=== PATIENT | male | born 1980 | race Caucasian/White ===

== ENCOUNTER → 2017-07-17 | Day surgery (SDC) | payer BC ==
[2017-06-27 15:01] VITALS: BMI 35.0
[~2017-07-17] VITALS: Ht 188 cm; Wt 125.0 kg
[~2017-07-17] MED LIST: ATROPINE SULFATE 0.1 MG/ML 5ML SYR IV PRN; BUPIVACAINE/EPINEPHRINE 0.5% MPF 1:200,000 30 ML VIAL ONE; CEFAZOLIN 3000MG IV PUSH 15 ML IV SCH; DEXAMETHASONE SOD INJ 4 MG/ML VIAL ONE; EpHEDrine SULFATE INJ 50 MG/ML AMP IV PRN; FENTANYL CITRATE INJ 50 MCG/1 ML 2 ML VIAL ONE; GLYCOPYRROLATE INJ 0.2 MG/ML VIAL ONE; HYDR-5688 PO; HYDROCODONE/ACETAMOPHEN 5/325MG TAB PO PRN; HYDROmorphone INJ 2 MG/ML SYR/VIAL IV PRN; LACTATED RINGER'S 1000ML 1,000 ML IV SCH; LIDOCAINE HCL 2% 2 ML VIAL (20MG/ML) ONE; MIDAZOLAM HCL 1 MG/ML 2ML VIAL ONE; NEOSTIGMINE METHYLSULFATE 5 MG/5 ML SYR ONE; ONDANSETRON INJ 2 MG/ML 2 ML VIAL IV PRN; ONDANSETRON INJ 2 MG/ML 2 ML VIAL ONE; PHENYLEPHRINE 100MCG/ML 5ML SYR IV PRN; PROPOFOL IV EMULSION 10 MG/ML 20 ML VIAL IV ONE; ROCURONIUM BROMIDE 10 MG/ML 5 ML VIAL IV ONE; SODIUM CHLORIDE 0.9% 1000ML 1,000 ML IV SCH
[2017-07-17 07:21] VITALS: BP 165/97; PULSE 89; TEMP 36.8; O2SAT 97; Ht 188 cm; Wt 125.0 kg
--- NOTE | 2017-07-17 08:26 | History & Physical Bridge Note ---
H&P Re-Evaluation Bridge Note: I have examined the patient, reviewed the History & Physical and in the interval since the performance of the History & Physical I have noted the following changes of clinical significance: No changes noted
--- NOTE | 2017-07-17 09:13 | [facility] Operative Report ---
Operative Report Operative Date Jul 17, 2017. Pre-Operative Diagnosis Umbilical Hernia Post-Operative Diagnosis Same as preoperative Procedure(s) Performed Open Umbilical Hernia Repair Surgeon Dr. Magen Argueta [employer] Surgeon(s) Demetrio Laws PA-C Estimated Blood Loss 5ml Findings approx 1 cm hernia defect Specimens None per surgeon Anesthesia LMA Disposition Recovery Room / PACU Description of Procedure After informed consent was obtained the patient was taken to the operating room and placed in a supine position. After successful placement of the laryngeal mask airway the abdomen was sterilely prepped and draped in usual fashion. I began with a curvilinear infraumbilical incision with 15 blade scalpel. We carried this down through the soft tissue using electrocautery. We used a Vicky clamp to come around above the umbilicus and detached the umbilical stalk. There was approximately a 1 cm defect. I excised the hernia sac as well as some preperitoneal fat and discarded it. Because of the small size of the defect I opted not to use mesh. I Used 0 Ethibond in interrupted figure-of- eight fashion to primarily close the defect with minimal tension. The wound was then thoroughly irrigated. I reattached the umbilical stalk with 0 Vicryl. I closed the wound in several layers using 3-0 Vicryl for the deep layers and 4-0 Monocryl for the skin. Marcaine was injected around the wound for postoperative analgesia and skin glue used as a dressing. The patient was awaken extubated and transferred recovery in stable condition I attest to the content of the Intraoperative Record and any orders documented therein. Any exceptions are noted below.
--- NOTE | 2017-07-17 09:27 | Discharge Instructions ---
Discharge Instructions Date of Service Jul 17, 2017. Visit Reason for Visit: Umbilical Hernia Discharge Discharge Diagnosis / Problem: Umbilical Hernia Discharge Goals Goal(s): Decrease discomfort, Improve function Activity Recommendations Activity Limitations: as noted below Lifting Limitations: no more than 10 pounds, until after follow-up appointment Exercise/Sports Limitations: until after follow-up appointment Shower/Bathe: tomorrow (Please do not submerge incision (no baths, hot tubs or pools)) Driving or Machine Use: resume 3 days after discharge (Please do not drive while using narcotic pain medication) Anesthesia . Post Anesthesia Instructions: If you have had General Anesthesia or IV Sedation: * Do not drive today. * Resume driving when surgeon permits. * Do not make important decisions or sign legal documents today. * Call surgeon for: 1. Temperature elevations greater than 101 degrees F. 2. Uncontrollable pain. 3. Excessive bleeding. 4. Persistent nausea and vomiting. 5. Medication intolerance (nausea, vomiting or rash). * For nausea and vomiting use only clear liquids such as: tea, soda, bouillon until nausea subsides, then gradually increase diet as tolerated. * If you have any concerns or questions, call your surgeon's office. If physician is unavailable and it is an emergency, call 911 or go to the nearest emergency room. . Instructions / Follow-Up Instructions / Follow-Up You have surgical glue covering your incision. Please allow this to fall off on its own. You have been prescribed [place] to take as needed for pain. You may alternate this with ibuprofen for better pain relief as well. You may ice your incision site to reduce swelling and pain. 20 minutes on, 20 minutes off. Please follow-up with Dr. Argueta in 2 weeks. Please contact our office at to schedule an appointment if you have not done so already. Please contact our office with any further questions or concerns. [facility] [address] [place] [address] Diet Recommendations Recommended Home Diet: no limitations, resume previous diet Procedures Procedures Performed: Open Umbilical Hernia Repair Pending Studies Studies pending at discharge: no Medical Emergencies . Who to Call and When: Medical Emergencies: If at any time you feel your situation is an emergency, please call 911 immediately. . Non-Emergent Contact Non-Emergency issues call your: Primary Care Provider, Surgeon Call Non-Emergent contact if: you have a fever, temperature is above 101.5, your pain is not controlled, your pain is worsening, wound has increased drainage, wound has increased redness . . "Provider Documentation" section prepared by Demetrio Laws. . [place] Drug Monitoring Program Search Results: patient reviewed within database, no issues identified
[2017-07-17 10:00] VITALS: BP 146/90; PULSE 79; TEMP 36.8; O2SAT 95
[2017-07-17 10:27] VITALS: BP 149/81; PULSE 81; O2SAT 93
[2017-07-17 11:00] VITALS: BP 152/82; PULSE 84; TEMP 36.6; O2SAT 99
--- NOTE | 2017-07-17 11:08 | Anesthesiology Progress Note ---
Anesthesia Post Op Note Date & Time Jul 17, 2017 at 11:08 Vital Signs Pain Intensity: 0 Vital Signs Past 12 Hours Date Time Temp Pulse Resp B/P (MAP) Pulse Ox O2 Delivery O2 Flow Rate FiO2 07/17/17 11:00 36.6 84 18 152/82 99 Room Air 07/17/17 10:27 81 18 149/81 93 Room Air 07/17/17 10:00 36.8 79 18 146/90 95 Room Air 07/17/17 09:55 36.5 07/17/17 09:51 150/93 07/17/17 09:50 83 16 95 07/17/17 09:50 83 16 07/17/17 09:46 154/93 07/17/17 09:45 81 15 97 07/17/17 09:45 83 15 07/17/17 09:44 156/89 07/17/17 09:41 169/102 07/17/17 09:40 80 07/17/17 09:40 80 14 100 07/17/17 09:36 150/93 07/17/17 09:35 87 12 98 07/17/17 09:35 88 12 07/17/17 09:31 150/89 07/17/17 09:30 83 13 95 07/17/17 09:30 83 13 07/17/17 09:25 80 14 146/79 100 07/17/17 09:25 80 14 07/17/17 09:20 36.3 84 16 146/79 99 Oxymask 10 07/17/17 07:21 36.8 89 20 165/97 (119) 97 Room Air Notes Mental Status: alert / awake / arousable, participated in evaluation Pt Amnestic to Procedure: Yes Nausea / Vomiting: adequately controlled Pain: adequately controlled Airway Patency, RR, SpO2: stable & adequate BP & HR: stable & adequate Hydration State: stable & adequate Anesthetic Complications: no major complications apparent
== END | disposition home or self-care (01) ==
LOC: C.ACU 06:40
PROVIDERS: ATTEND Surgery
DX: K42.9 Umbilical hernia without obstruction or gangrene (principal); I10 Essential (primary) hypertension; E78.1 Pure hyperglyceridemia